=== PATIENT | male | born 1965 | race Two or more races ===

== ENCOUNTER 2019-08-08 22:02 | Inpatient (IN) | payer BC, OTHER ==
[~2019-08-08] VITALS: Ht 170.2 cm; Wt 95.3 kg
[~2019-08-08 22:02] MED LIST: ASPIR 8181 MG ORAL; COLACE100 MG ORAL; FLOMAX0.4 MG ORAL; METOPROLOL SUC200 MG ORAL; METOPROLOL TART25 MG ORAL; NORCO 5-325 TA1 EAC1 ORAL; PRILOSEC10 MG ORAL; SERTRALINE20 MG/1 M1 PO; SOMA350 MG PO
[2019-08-08 22:15] VITALS: BP 151/99
--- NOTE | 2019-08-08 22:15 | NUR ---
ED Nurse Note: Patient walked in from home accompanied by d/t abdominal pain 04/01. Patient stated pain started today and is progressively getting worse. Patient has hx of gallbladder removal. Patient aao x 4 and ambulatory. Patient placed in gown and registered nurse cardiac. No acute distress at this time.
--- NOTE | 2019-08-08 22:30 | NUR ---
ED Nurse Note: ERMD at bedside.
[2019-08-08] MEDS ORDERED: Omnipaque-300 100ml vial INJ PRN (23:00)
[2019-08-08 23:24] LABS: APPEARANCE,URINE CLEAR; BILIRUBIN, URINE NEGATIVE (NEGATIVE); GLUCOSE, URINE (UA) NEGATIVE (NEGATIVE); KETONES,URINE 1+ (NEGATIVE); LEUKOCYTE ESTERASE ,URINE NEGATIVE (NEGATIVE); NITRITE,URINE NEGATIVE (NEGATIVE); PH,URINE 6.5 (4.5-8.0); UROBILINOGEN,URINE 1 MG/DL (0.0-1.0)
[2019-08-08 23:27] LABS: COLOR,URINE YELLOW; PROTEIN,URINE NEGATIVE (NEGATIVE)
[2019-08-08 23:28] LABS: BASOPHILS % (AUTO) 0.9 % (0.0-2.0); EOSINOPHILS % (AUTO) 1.9 % (0.0-3.0); HEMATOCRIT 42.7 % (42.0-52.0); HEMOGLOBIN 15.1 G/DL (14.2-18.0); LYMPHOCYTES % (AUTO) 30.5 % (20.0-45.0); MEAN CORPUSCULAR VOLUME 86 FL (80-99); MONOCYTES % (AUTO) 10.4 % (1.0-10.0); NEUTROPHILS % (AUTO) 56.3 % (45.0-75.0); PLATELET COUNT 215 K/UL (150-450); RED BLOOD COUNT 4.96 M/UL (4.70-6.10); RED CELL DISTRIBUTION WIDTH 11.3 % (11.6-14.8); WHITE BLOOD COUNT 7.7 K/UL (4.8-10.8)
[2019-08-08 23:39] LABS: INR 1.1 (0.9-1.1)
[2019-08-08 23:41] LABS: ANION GAP 6 mmol/L (5-15); BLOOD UREA NITROGEN 17 mg/dL (7-18); CARBON DIOXIDE 29 MMOL/L (21-32); CHLORIDE 106 MMOL/L (98-107); CREATININE 1.2 MG/DL (0.55-1.30); POTASSIUM 3.8 MMOL/L (3.5-5.1); SODIUM 141 MMOL/L (136-145)
[2019-08-08 23:46] LABS: ALANINE AMINOTRANSFERASE 52 U/L (12-78); ALBUMIN/GLOBULIN RATIO 1.1 (1.0-2.7); ALKALINE PHOSPHATASE 51 U/L (46-116); ASPARTATE AMINO TRANSFERASE 27 U/L (15-37); BILIRUBIN,TOTAL 0.9 MG/DL (0.2-1.0)
--- NOTE | 2019-08-08 23:52 | NUR ---
ED Nurse Note: ERMD at bedside.
--- NOTE | 2019-08-09 00:22 | NUR ---
ED Nurse Note: Patient taken to CT in stable condition.
--- NOTE | 2019-08-09 01:17 | Diagnostic Imaging Report ---
Indication: Abdominal pain Technique: CT of the abdomen and pelvis utilizing automated exposure control with intravenous contrast. Venous scanning performed. Axial, sagittal and coronal reformats presented. CT dose: Total DLP 1699.8 mGycm; CTDI vol 27.1 mGy Comparison: No prior CT of the abdomen available for comparison Findings: Dependent atelectasis noted at the lung bases. Partially imaged heart appears normal in size. There is elevation of the bilateral hemidiaphragms. There is interposition of portions of the colon anterior to the liver (Chilaiditi sign). The patient is status post cholecystectomy. Hepatic contour appears smooth. No focal hepatic mass lesion noted on this single phase exam. Decreased hepatic attenuation may suggest but are not diagnostic of hepatic steatosis. Portal veins appear patent. No biliary ductal dilatation. Spleen appears mildly enlarged. Adrenal glands and pancreas unremarkable. Kidneys enhance symmetrically. There is no urinary tract stone or hydronephrosis bilaterally. There is a subcentimeter well-circumscribed low-attenuation lesion in the lower pole the right kidney which is too small to fully characterize but most likely represents a cyst. Bladder is unremarkable in appearance. Prostate is mildly enlarged and heterogeneous and exerts mild mass effect on the posterior aspect of the bladder. There is no free intraperitoneal air or fluid. There is no evidence of small bowel obstruction. There is equivocal thickening of the wall of the gastric antrum which may be related to underdistention. A mild gastritis can be considered in the appropriate clinical setting. The appendix is not definitively identified however there are no pericecal inflammatory changes to suggest acute appendicitis. Apparent focal thickening versus underdistention in the wall of the rectum (series 2 image #73). Abdominal aorta is normal in caliber. No acute osseous abnormality identified. IMPRESSION: * Equivocal thickening of the wall of the gastric antrum versus underdistention. Correlate clinically for symptoms of gastritis. * No evidence of bowel obstruction. Appendix not definitively identified however there is no focal pericecal inflammatory changes to suggest an acute appendicitis. * Apparent focal wall thickening involving portions of the rectum which may be related to underdistention. Consider follow-up colonoscopy, especially if none performed recently. * Status post cholecystectomy. * Chilaiditi sign. * Prostatomegaly with prostatic heterogeneity. Findings likely on the basis of BPH. Correlation with prostate exam and PSA however is recommended. Additional findings as above. The CT scanner at [facility] is accredited by the [employer] and the scans are performed using protocols designed to limit radiation exposure to as low as reasonably achievable to attain images of sufficient resolution adequate for diagnostic evaluation.
--- NOTE | 2019-08-09 01:50 | Emergency Room Report ---
History of Present Illness General Chief Complaint: Abdominal Pain Source: Patient Present Illness HPI 54-year-old male history of gallbladder removal, history of retained stone presents with epigastric pain, right upper quadrant pain that radiates to his right shoulder, no aggravating relieving factors symptoms started this morning, severity is moderate, constant no aggravating relieving factors, patient denies any association with food, no dyspnea on exertion, patient states that his epigastric discomfort no dyspnea on exertion patient presents for evaluation Allergies: Coded Allergies: No Known Allergies (Unverified , 09/16/15) Patient History Past Medical History: see triage record Reviewed Nursing Documentation: PMH: Agreed; PSxH: Agreed Nursing Documentation-PMH Hx Cardiac Problems: Yes - HTN;HYPERCHOLESTEROLEMIA Hx Hypertension: Yes Hx Diabetes: No Hx Cancer: No Hx Gastrointestinal Problems: No Review of Systems All Other Systems: negative except mentioned in HPI Physical Exam Vital Signs Date Time Temp Pulse Resp B/P (MAP) Pulse Ox O2 Delivery O2 Flow Rate FiO2 08/08/19 22:15 97.3 65 10 151/99 98 Room Air Sp02 EP Interpretation: reviewed, normal General Appearance: well appearing, no apparent distress, alert Head: normocephalic, atraumatic Eyes: bilateral eye PERRL, bilateral eye EOMI ENT: uvula midline, moist mucus membranes Neck: supple, thyroid normal, supple/symm/no masses Respiratory: lungs clear, no respiratory distress, no retraction, no accessory muscle use Cardiovascular #1: normal peripheral pulses, regular rate, rhythm, no edema, no gallop, no murmur Gastrointestinal: non tender, soft, no guarding, no rebound Musculoskeletal: normal inspection Neurologic: alert, oriented x3 Psychiatric: mood/affect normal Skin: no rash, warm/dry Medical Decision Making Diagnostic Impression: Primary Impression: Abdominal pain Qualified Codes: R10.13 - Epigastric pain Additional Impressions: Epigastric pain Chest pain Qualified Codes: R07.9 - Chest pain, unspecified ER Course 54-year-old male presents with epigastric pain, right upper quadrant pain, DDX includes ACS, retained gallstone, gastritis patient with Multiple flipped T waves, on EKG no old to compare, patient with a negative troponin CT scan negative, labs unremarkable Will admit patient for evaluation for ACS and possible retained stone Ultrasound will be conducted in the morning which will be followed up by hospitalist Troponins negative however they are currently up trending, but still negative We will admit patient for continued evaluation Patient admitted to Dr. Barragan Laboratory Tests Test 08/08/19 22:33 08/08/19 23:05 Urine Color Yellow Urine Appearance Clear Urine pH 6.5 (4.5-8.0) Urine Specific [place] 1.015 (1.005-1.035) Urine Protein Negative (NEGATIVE) Urine Glucose (UA) Negative (NEGATIVE) Urine Ketones 1+ (NEGATIVE) H Urine Blood Negative (NEGATIVE) Urine Nitrite Negative (NEGATIVE) Urine Bilirubin Negative (NEGATIVE) Urine Urobilinogen 1 MG/DL (0.0-1.0) H Urine Leukocyte Esterase Negative (NEGATIVE) White Blood Count 7.7 K/UL (4.8-10.8) Red Blood Count 4.96 M/UL (4.70-6.10) Hemoglobin 15.1 G/DL (14.2-18.0) Hematocrit 42.7 % (42.0-52.0) Mean Corpuscular Volume 86 FL (80-99) Mean Corpuscular Hemoglobin 30.5 PG (27.0-31.0) Mean Corpuscular Hemoglobin Concent 35.5 G/DL (32.0-36.0) Red Cell Distribution Width 11.3 % (11.6-14.8) L Platelet Count 215 K/UL (150-450) Mean Platelet Volume 6.8 FL (6.5-10.1) Neutrophils (%) (Auto) 56.3 % (45.0-75.0) Lymphocytes (%) (Auto) 30.5 % (20.0-45.0) Monocytes (%) (Auto) 10.4 % (1.0-10.0) H Eosinophils (%) (Auto) 1.9 % (0.0-3.0) Basophils (%) (Auto) 0.9 % (0.0-2.0) Prothrombin Time 11.4 SEC (9.30-11.50) Prothrombin Time INR 1.1 (0.9-1.1) PTT 32 SEC (23-33) Sodium Level 141 MMOL/L (136-145) Potassium Level 3.8 MMOL/L (3.5-5.1) Chloride Level 106 MMOL/L (98-107) Carbon Dioxide Level 29 MMOL/L (21-32) Anion Gap 6 mmol/L (5-15) Blood Urea Nitrogen 17 mg/dL (7-18) Creatinine 1.2 MG/DL (0.55-1.30) Estimate Glomerular Filtration Rate > 60 mL/min (>60) Glucose Level 98 MG/DL (74-106) Calcium Level 9.0 MG/DL (8.5-10.1) Total Bilirubin 0.9 MG/DL (0.2-1.0) Aspartate Amino Transferase (AST) 27 U/L (15-37) Alanine Aminotransferase (ALT) 52 U/L (12-78) Alkaline Phosphatase 51 U/L (46-116) Troponin I 0.043 ng/mL (0.000-0.056) Total Protein 7.7 G/DL (6.4-8.2) Albumin 4.0 G/DL (3.4-5.0) Globulin 3.7 g/dL Albumin/Globulin Ratio 1.1 (1.0-2.7) Lipase 101 U/L (73-393) EKG Diagnostic Results EKG Time: 22:59 EP Interpretation: NSR, rate 61, QTc 465, flipped T waves 1 aVL, 2 aVF, V3 through V6 Rhythm Strip Diag. Results Rhythm Strip Time: 01:50 EP Interpretation: yes Rate: 61 Rhythm: NSR, no PVC's, no ectopy Chest X-Ray Diagnostic Results Chest X-Ray Diagnostic Results : Chest X-Ray Ordered: Yes # of Views/Limited/Complete: 1 View Indication: Chest Pain EP Interpretation: Yes Interpretation: no consolidation, no effusion, no pneumothorax, no acute cardiopulmonary disease Impression: No acute disease Electronically Signed by: Jayme Jones MD CT/MRI/US Diagnostic Results CT/MRI/US Diagnostic Results : Impression Procedure: CT Abdomen Pelvis w/Contrast CT ABDOMEN + PELVIS With Contrast: Lower lungs: No acute findings. Liver: Steatosis. Gallbladder: Removed. Spleen, pancreas, and adrenal glands: No acute findings. Kidneys: No hydronephrosis or obstructive nephrolithiasis. Bowel: No bowel obstruction. Copious stool in the right and transverse colon. Appendix: No convincing appendicitis. Bladder: Unremarkable. Pelvic organs: Mildly enlarged prostate. Vessels: No aortic aneurysm. Bones: No acute fracture. Dictated By: FARHAN PORTILLO M.D. Electronically Signed By: Signed Date/Time CC: Last Vital Signs Date Time Temp Pulse Resp B/P (MAP) Pulse Ox O2 Delivery O2 Flow Rate FiO2 08/08/19 22:25 98.1 64 18 147/88 (107) 95 Room Air Disposition: ADMITTED INPATIENT Condition: Stable Referrals: NON PHYSICIAN (PCP) Jayme Jones MD Aug 09, 2019 01:50
[2019-08-09] MEDS ORDERED: LOSARTAN-HCTZ1 EACH ORAL (02:37)
--- NOTE | 2019-08-09 02:38 | NUR ---
ED Nurse Note: Report given to DOUG Kenney at telemetry.
[2019-08-09] MEDS ORDERED: Enoxaparin 100mg Inj SUBQ ONE (02:45)
--- NOTE | 2019-08-09 02:45 | NUR ---
ED Nurse Note: Patient transported via gurney on monitoring and evaluation advisor with 1 RN and cardio tech in stable condition.
[2019-08-09 03:00] VITALS: BP 145/93
--- NOTE | 2019-08-09 03:41 | NUR ---
NURSE NOTES: Received pt from ED via gurney. Pt transferred to [facility] without any incident. at bedside. Received report from charge nurse, Maria Teresa. Pt is A/Ox4. [place] pt to room and unit. [employer] is in placed; pt is NSR. IV site intact, asymptomatic and patent. Belongings list checked and signed by pt. Bed is in the lowest position and locked. Call light and bedside stable is within reach. No signs/symptoms of acute distress noted at this time. Will contact Dr. Barragan for admission orders.
[2019-08-09 04:00] VITALS: BP 142/94
--- NOTE | 2019-08-09 04:11 | NUR ---
NURSE NOTES: Received admission orders from Dr. Barragan. Will note and carry out.
--- NOTE | 2019-08-09 07:24 | NUR ---
NURSE NOTES: handoff received from austin Patel. patient received sleeping in bed, iv site clean dry and intact running prescribed fluids, no acute signs of distress noted. bed in the low and locked position with call light at bedside. will continue to monitor.
--- NOTE | 2019-08-09 07:33 | NUR ---
HAND-OFF: Report given to DOUG Gauthier. Plan of care endorsed.
[2019-08-09 08:00] VITALS: BP 147/105
--- NOTE | 2019-08-09 08:56 | Consultation ---
History of Present Illness General Date patient seen: Aug 09, 2019 Time patient seen: 08:30 - am Chief Complaint: Abdominal pain Referring physician: Yung Reason for Consultation: Pain Management Present Illness HPI This is a 54-year-old male history of gallbladder removal, history of retained stone admitted due to epigastric pain, right upper quadrant pain that radiated to his right shoulder, no aggravating relieving factors symptoms started yesterday, severity was moderate, no aggravating relieving factors, patient denies any association with food, no dyspnea on exertion, patient states that his epigastric discomfort no dyspnea on exertion patient presents for evaluation. He is denying pain at this time. We were consulted so patient has adequate pain control while here in the [facility] Past medical History HTN;HYPERCHOLESTEROLEMIA, sleep apnea, fatty liver Past surgical History Cholecystectomy Social History Denies: smoking, alcohol use, drug use, other Allergies: Coded Allergies: No Known Allergies (Unverified , 09/16/15) Medication History Scheduled Losartan/Hydrochlorothiazide (Losartan-Hctz 100-12.5 Mg Tab), 1 TAB ORAL BID, ( Reported) Tamsulosin HCl (Flomax), 0.4 MG ORAL QHS, (Reported) Discontinued Medications Aspirin* (Aspir 81*), 81 MG ORAL DAILY, (Reported) Discontinued Reason: MD discontinued med Carisoprodol* (Soma*), 350 MG PO TID, (Reported) Discontinued Reason: MD discontinued med Docusate Sodium* (Colace*), 100 MG ORAL THREE TIMES A DAY, (Reported) Discontinued Reason: MD discontinued med Hydrocodone Bit/Acetaminophen 5-325* ([place] 5-325 Tablet*), 1 TAB ORAL Q6HR PRN for For Pain, (Reported) Discontinued Reason: MD discontinued med Metoprolol Succinate (Metoprolol Succinate), Unknown Dose ORAL DAILY, (Reported) Discontinued Reason: MD discontinued med Metoprolol Tartrate* (Metoprolol Tartrate*), 25 MG ORAL BID, (Reported) Discontinued Reason: MD discontinued med Omeprazole (Prilosec), 10 MG ORAL DAILY, (Reported) Discontinued Reason: MD discontinued med Sertraline Hcl (Sertraline Hcl), 20 MG PO, (Reported) Discontinued Reason: MD discontinued med Patient History Healthcare decision maker Resuscitation status Full Code Advanced Directive on File Review of Systems ROS Narrative All Other Systems: negative except mentioned in HPI Physical Exam Physical Exam Narrative General Appearance: well appearing, no apparent distress, alert Head: normocephalic EENT: PERRL/EOMI, normal ENT inspection Neck: supple Respiratory: normal breath sounds, no respiratory distress Cardiovascular: normal rate Gastrointestinal: normal inspection, non tender, soft, normal bowel sounds, non -distended Rectal: deferred Genitourinary: deferred Musculoskeletal: normal inspection, back normal Neurologic: alert, oriented x3, responsive, normal inspection Psychiatric: normal inspection, judgement/insight normal, memory normal Skin: normal inspection, normal color, no rash, warm/dry, palpation normal, well hydrated Lymphatic: normal inspection, no adenopathy Last 24 Hour Vital Signs Date Time Temp Pulse Resp B/P (MAP) Pulse Ox O2 Delivery O2 Flow Rate FiO2 08/09/19 04:00 97.6 62 18 142/94 (110) 96 08/09/19 03:36 Room Air 08/09/19 03:24 69 08/09/19 03:00 97.4 66 17 145/93 (110) 96 08/09/19 02:45 97.5 70 19 139/65 97 Room Air 08/08/19 22:25 98.1 64 18 147/88 (107) 95 Room Air 08/08/19 22:15 65 10 Room Air 08/08/19 22:15 97.3 65 10 151/99 98 Room Air Intake and Output 08/08/19 08/09/19 18:59 06:59 Intake Total 1000 ml Balance 1000 ml Intake Oral 0 ml IV Total 1000 ml # Voids 3 Laboratory Tests Test 08/08/19 22:33 08/08/19 23:05 08/09/19 01:50 Urine Color Yellow Urine Appearance Clear Urine pH 6.5 (4.5-8.0) Urine Specific [place] 1.015 (1.005-1.035) Urine Protein Negative (NEGATIVE) Urine Glucose (UA) Negative (NEGATIVE) Urine Ketones 1+ (NEGATIVE) H Urine Blood Negative (NEGATIVE) Urine Nitrite Negative (NEGATIVE) Urine Bilirubin Negative (NEGATIVE) Urine Urobilinogen 1 MG/DL (0.0-1.0) H Urine Leukocyte Esterase Negative (NEGATIVE) White Blood Count 7.7 K/UL (4.8-10.8) Red Blood Count 4.96 M/UL (4.70-6.10) Hemoglobin 15.1 G/DL (14.2-18.0) Hematocrit 42.7 % (42.0-52.0) Mean Corpuscular Volume 86 FL (80-99) Mean Corpuscular Hemoglobin 30.5 PG (27.0-31.0) Mean Corpuscular Hemoglobin Concent 35.5 G/DL (32.0-36.0) Red Cell Distribution Width 11.3 % (11.6-14.8) L Platelet Count 215 K/UL (150-450) Mean Platelet Volume 6.8 FL (6.5-10.1) Neutrophils (%) (Auto) 56.3 % (45.0-75.0) Lymphocytes (%) (Auto) 30.5 % (20.0-45.0) Monocytes (%) (Auto) 10.4 % (1.0-10.0) H Eosinophils (%) (Auto) 1.9 % (0.0-3.0) Basophils (%) (Auto) 0.9 % (0.0-2.0) Prothrombin Time 11.4 SEC (9.30-11.50) Prothromb Time International Ratio 1.1 (0.9-1.1) Activated Partial Thromboplast Time 32 SEC (23-33) Sodium Level 141 MMOL/L (136-145) Potassium Level 3.8 MMOL/L (3.5-5.1) Chloride Level 106 MMOL/L (98-107) Carbon Dioxide Level 29 MMOL/L (21-32) Anion Gap 6 mmol/L (5-15) Blood Urea Nitrogen 17 mg/dL (7-18) Creatinine 1.2 MG/DL (0.55-1.30) Estimat Glomerular Filtration Rate > 60 mL/min (>60) Glucose Level 98 MG/DL (74-106) Calcium Level 9.0 MG/DL (8.5-10.1) Total Bilirubin 0.9 MG/DL (0.2-1.0) Aspartate Amino Transf (AST/SGOT) 27 U/L (15-37) Alanine Aminotransferase (ALT/SGPT) 52 U/L (12-78) Alkaline Phosphatase 51 U/L (46-116) Troponin I 0.043 ng/mL (0.000-0.056) 0.054 ng/mL (0.000-0.056) Total Protein 7.7 G/DL (6.4-8.2) Albumin 4.0 G/DL (3.4-5.0) Globulin 3.7 g/dL Albumin/Globulin Ratio 1.1 (1.0-2.7) Lipase 101 U/L (73-393) Height (Feet): 5 Height (Inches): 7.00 Weight (Pounds): 210 Medications Current Medications Medications (Trade) Dose Ordered Sig/Monalisa Route PRN Reason Start Time Stop Time Status Last Admin Dose Admin Acetaminophen (Tylenol) 650 mg Q4H PRN ORAL Mild Pain/Temp > 100.5 08/09/19 04:15 09/08/19 04:14 Iohexol (OMNIPAQUE-300 100ml) 100 ml NOW PRN INJ Radiology Procedure 08/08/19 23:00 08/10/19 22:56 Sodium Chloride 1,000 ml @ 55 mls/hr [id number] IV 08/09/19 04:15 09/08/19 04:14 08/09/19 05:06 Assessment/Plan Assessment/Plan: (1) Post-cholecystectomy syndrome (2) Abdominal pain Patient will be started on Tylenol 650mg PO 1 tab Q4h PRN pain D/w Dr. Grigsby and he concurred. Thank you for the courtesy of this consult. Vladimir Lovelace Aug 09, 2019 08:56
--- NOTE | 2019-08-09 09:10 | NUR ---
NURSE NOTES: patient stated that he takes Cozaar at home, noticed he does not have any blood pressure medications at this time. contacted the Dr and he gave orders for cozaar.
[2019-08-09] MEDS: Losartan 25mg tab ORAL SCH (11:20)
[2019-08-09 11:51] VITALS: BP 120/62
--- NOTE | 2019-08-09 13:08 | GI Initial Consult Note ---
History of Present Illness General Date patient seen: Aug 09, 2019 Time patient seen: 13:01 Reason for Hospitalization: Abdominal Pain Referring physician: NAZIA PHILLIPS Reason for Consultation: RUQ PAIN Present Illness HPI 54-year-old male history of gallbladder removal, history of retained stone presents with epigastric pain, right upper quadrant pain that radiates to his right shoulder, no aggravating relieving factors symptoms started this morning, severity is moderate, constant no aggravating relieving factors, patient denies any association with food, no dyspnea on exertion, patient states that his epigastric discomfort no dyspnea on exertion patient presents for evaluation GI consulted for right upper quadrant pain. Patient seen, awake fatigue, no apparent distress no active signs or symptoms of any nausea vomiting. Patient is sleepy unable to provide any significant history at this time. Patient has history of laparoscopic cholecystectomy done back in August 2015. Abdominal pelvic CT performed in the emergency room mainly unremarkable. Did note copious stool in the right and transverse colon. Labs reviewed noted unremarkable CBC and CMP. No transaminitis noted, lipase levels within normal limits Home Meds Reported Medications Losartan/Hydrochlorothiazide (LOSARTAN-HCTZ 100-12.5 MG TAB) 1 Each Tablet, 1 TAB ORAL BID, TAB 08/09/19 Tamsulosin HCl (Flomax) 0.4 Mg Cap, 0.4 MG ORAL QHS, CAP 09/21/15 Discontinued Reported Medications Metoprolol Tartrate* (METOPROLOL TARTRATE*) 25 Mg Tablet, 25 MG ORAL BID, TAB 09/21/15 Docusate Sodium* (COLACE*) 100 Mg Capsule, 100 MG ORAL THREE TIMES A DAY for Constipation, CAP 09/21/15 Carisoprodol* (SOMA*) 350 Mg Tablet, 350 MG PO TID for For Pain, TAB 09/21/15 Hydrocodone Bit/Acetaminophen 5-325* (NORCO 5-325 TABLET*) 1 Each Tablet, 1 TAB ORAL Q6HR PRN for For Pain, TAB 09/16/15 Aspirin* (ASPIR 81*) 81 Mg Tablet.dr, 81 MG ORAL DAILY, TAB 09/16/15 Omeprazole (PRILOSEC) 10 Mg Capsule.dr, 10 MG ORAL DAILY, CAP 09/16/15 Metoprolol Succinate (METOPROLOL SUCCINATE) 200 Mg Tab.er.24h, ORAL DAILY, TAB 09/16/15 Sertraline Hcl (SERTRALINE HCL) 20 Mg/1 Ml Oral.conc, 20 MG PO, ML 09/16/15 Allergies: Coded Allergies: No Known Allergies (Unverified , 09/16/15) Patient History History Provided By: Patient, Medical Record PMH Narrative Past Medical History: see triage record Reviewed Nursing Documentation: PMH: Agreed; PSxH: Agreed Nursing Documentation-PMH Hx Cardiac Problems: Yes - HTN;HYPERCHOLESTEROLEMIA Hx Hypertension: Yes Hx Diabetes: No Hx Cancer: No Hx Gastrointestinal Problems: No Social History: Denies: smoking, alcohol use, drug use, other Review of Systems All Other Systems: negative except mentioned in HPI Physical Exam Vital Signs Date Time Temp Pulse Resp B/P (MAP) Pulse Ox O2 Delivery O2 Flow Rate FiO2 08/08/19 22:15 97.3 65 10 151/99 98 Room Air Sp02 EP Interpretation: reviewed, normal Labs Laboratory Tests Test 08/08/19 22:33 08/08/19 23:05 08/09/19 01:50 08/09/19 11:45 Urine Color Yellow Urine Appearance Clear Urine pH 6.5 (4.5-8.0) Urine Specific [place] 1.015 (1.005-1.035) Urine Protein Negative (NEGATIVE) Urine Glucose (UA) Negative (NEGATIVE) Urine Ketones 1+ (NEGATIVE) H Urine Blood Negative (NEGATIVE) Urine Nitrite Negative (NEGATIVE) Urine Bilirubin Negative (NEGATIVE) Urine Urobilinogen 1 MG/DL (0.0-1.0) H Urine Leukocyte Esterase Negative (NEGATIVE) White Blood Count 7.7 K/UL (4.8-10.8) Red Blood Count 4.96 M/UL (4.70-6.10) Hemoglobin 15.1 G/DL (14.2-18.0) Hematocrit 42.7 % (42.0-52.0) Mean Corpuscular Volume 86 FL (80-99) Mean Corpuscular Hemoglobin 30.5 PG (27.0-31.0) Mean Corpuscular Hemoglobin Concent 35.5 G/DL (32.0-36.0) Red Cell Distribution Width 11.3 % (11.6-14.8) L Platelet Count 215 K/UL (150-450) Mean Platelet Volume 6.8 FL (6.5-10.1) Neutrophils (%) (Auto) 56.3 % (45.0-75.0) Lymphocytes (%) (Auto) 30.5 % (20.0-45.0) Monocytes (%) (Auto) 10.4 % (1.0-10.0) H Eosinophils (%) (Auto) 1.9 % (0.0-3.0) Basophils (%) (Auto) 0.9 % (0.0-2.0) Prothrombin Time 11.4 SEC (9.30-11.50) Prothromb Time International Ratio 1.1 (0.9-1.1) Activated Partial Thromboplast Time 32 SEC (23-33) Sodium Level 141 MMOL/L (136-145) Potassium Level 3.8 MMOL/L (3.5-5.1) Chloride Level 106 MMOL/L (98-107) Carbon Dioxide Level 29 MMOL/L (21-32) Anion Gap 6 mmol/L (5-15) Blood Urea Nitrogen 17 mg/dL (7-18) Creatinine 1.2 MG/DL (0.55-1.30) Estimat Glomerular Filtration Rate > 60 mL/min (>60) Glucose Level 98 MG/DL (74-106) Calcium Level 9.0 MG/DL (8.5-10.1) Total Bilirubin 0.9 MG/DL (0.2-1.0) Aspartate Amino Transf (AST/SGOT) 27 U/L (15-37) Alanine Aminotransferase (ALT/SGPT) 52 U/L (12-78) Alkaline Phosphatase 51 U/L (46-116) Troponin I 0.043 ng/mL (0.000-0.056) 0.054 ng/mL (0.000-0.056) 0.050 ng/mL (0.000-0.056) Total Protein 7.7 G/DL (6.4-8.2) Albumin 4.0 G/DL (3.4-5.0) Globulin 3.7 g/dL Albumin/Globulin Ratio 1.1 (1.0-2.7) Lipase 101 U/L (73-393) General Appearance: well appearing, no apparent distress, alert Head: normocephalic EENT: PERRL/EOMI, normal ENT inspection Neck: supple Respiratory: normal breath sounds, no respiratory distress Cardiovascular: normal rate Gastrointestinal: normal inspection, non tender, soft, normal bowel sounds, non -distended Rectal: deferred Genitourinary: deferred Musculoskeletal: normal inspection, back normal Neurologic: alert, oriented x3, responsive, normal inspection Psychiatric: normal inspection, judgement/insight normal, memory normal Skin: normal inspection, normal color, no rash, warm/dry, palpation normal, well hydrated Lymphatic: normal inspection, no adenopathy Current Medications Current Medications Medications (Trade) Dose Ordered Sig/Monalisa Route PRN Reason Start Time Stop Time Status Last Admin Dose Admin Acetaminophen (Tylenol) 650 mg Q4H PRN ORAL Mild Pain/Temp > 100.5 08/09/19 04:15 09/08/19 04:14 Iohexol (OMNIPAQUE-300 100ml) 100 ml NOW PRN INJ Radiology Procedure 08/08/19 23:00 08/10/19 22:56 Losartan Potassium (Cozaar) 25 mg DAILY ORAL 08/09/19 10:00 09/08/19 09:59 08/09/19 11:20 Sodium Chloride 1,000 ml @ 55 mls/hr [id number] IV 08/09/19 04:15 09/08/19 04:14 08/09/19 05:06 GI: Plan Problems: (1) Post-cholecystectomy syndrome (2) Abdominal pain (3) Chest pain (4) Epigastric pain (5) Gallstones (6) Pancreatitis (7) Cholecystitis Plan Negative abdominal pelvic CT No plans for any GI procedures at this time. Symptomatic treatment Advance diet as tolerated Pain management Zofran as needed PPI Follow-up cardiology recommendations We will follow on daily basis with any additional recommendations The patient was seen and examined at bedside and all new and available data was reviewed in the patients chart. I agree with the above findings, impression and plan. (Patient seen earlier today. Signature stamp does not reflect patient encounter time.). - MD Susana Bourgeois,Melissa-Cj WALTER Aug 09, 2019 13:08
[2019-08-09 16:00] VITALS: BP_SYST 129; BP_SYST 148; BP_DIAS 85; BP_DIAS 87
--- NOTE | 2019-08-09 17:34 | Diagnostic Imaging Report ---
Indication: Chest pain Technique: XRAY Chest 1v Comparison: 11/04/2016 Findings: Exam with low lung volumes. There is streaky likely expiratory atelectasis at the bases. Heart size and mediastinal contours within normal limits for AP technique and low lung volumes. No pleural effusion or pneumothorax. No acute osseous abnormality. Impression: Low volumes with streaky atelectasis at the bases.
--- NOTE | 2019-08-09 17:39 | Diagnostic Imaging Report ---
Indication: Abdominal pain Technique: US ABD Complete Comparison: 09/16/2015 Findings: Technically difficult scan given body habitus and overlying bowel gas. Within these limitations: Imaged portions of the pancreas grossly unremarkable. Liver demonstrates increased echogenicity suggesting hepatic steatosis. Liver appears normal in size. Hepatic contour appears smooth. No focal hepatic mass lesion appreciated sonographically. Imaged hepatic veins are patent. Main portal vein is patent with normal direction of flow. Gallbladder is not identified. No biliary ductal dilatation is demonstrated. The common bile duct measures 3.2 mm in diameter. The kidneys demonstrate normal echogenicity. There is no hydronephrosis or sonographically appreciable renal stone. A approximately 1 cm simple cyst is noted in the lower pole the right kidney. Spleen is mildly enlarged measuring 13-14 cm in length. Imaged portions of the abdominal aorta are normal in caliber. No ascites is demonstrated. Impression: * Status post cholecystectomy. * Hepatic steatosis. * Splenomegaly. * Approximately 1 cm simple appearing right renal cyst.
--- NOTE | 2019-08-09 19:30 | NUR ---
NURSE NOTES: Received report from DOUG Gauthier. Pt is awake, lying high-watts's position; resting comfortably. at the bedside. No signs of acute distress noted. Denies any pain at this time. AOx4; able to make needs known. Checked IV site; patent and flushed. No erythema, bleeding, or infiltration noted. Bed at lowest position. Brakes on. Siderails up x2. Call light within reach. Will continue to monitor.
--- NOTE | 2019-08-09 19:48 | NUR ---
HAND-OFF: Report given to austin Gomez.
[2019-08-09 20:00] VITALS: BP 113/57
--- NOTE | 2019-08-09 21:07 | NUR ---
NURSE NOTES: Called Dr. Barragan to inform him that patient refuses 1/2 NS @ 55 mls/hr continuous fluids. Awaiting callback.
--- NOTE | 2019-08-09 22:00 | NUR ---
NURSE NOTES: Received order from Dr. Barragan to discontinue 1/2 NS @ 55 ml/hr order. Noted and carried out.
--- NOTE | 2019-08-09 23:45 | History and Physical Report ---
DATE OF ADMISSION: 08/09/2019 HISTORY OF PRESENT ILLNESS: The patient complains of one day of right upper quadrant tenderness. The patient has history of cholecystectomy and then has gallbladder removed, comes with retained stone and now presented with right upper quadrant pain and epigastric pain, admitted for pain control, rule out ACS. The patient does complain of chest pain as well. The patient denies nausea, vomiting, or diarrhea. Denies fever or chills. Denies shortness of breath. Denies cough. Denies chills. PAST MEDICAL HISTORY: Significant for hypertension, BPH, gallstones, and lipoma. PAST SURGICAL HISTORY: Removal of lipoma and cholecystectomy. ALLERGIES: No known allergies. MEDICATIONS: Hydrochlorothiazide, losartan, and Flomax. FAMILY HISTORY: Noncontributory. SOCIAL HISTORY: Denies smoking, alcohol, or illicit drugs. . REVIEW OF SYSTEMS: HEENT: Denies headaches. RESPIRATORY: Denies shortness of breath. Denies cough. CARDIOVASCULAR: Does have chest pain for one day. GASTROINTESTINAL: Reports right upper quadrant for one day. Denies extension to the sides. Denies nausea, vomiting, or diarrhea. CENTRAL NERVOUS SYSTEM: Denies change in vision or speech pattern. PHYSICAL EXAMINATION: VITAL SIGNS: Temperature is 98.5, pulse is 60, blood pressure 128/60. HEENT: PERRLA. NECK: Supple. No lymphadenopathy. CHEST: Clear to auscultation. CARDIOVASCULAR: Regular rate and rhythm. No murmurs or extra sounds. GASTROINTESTINAL: Mild right upper quadrant tenderness. No rebound. No organomegaly. Positive bowel sounds. EXTREMITIES: No edema. Moves all four extremities. NEUROLOGIC: Sensory is intact to light touch. Reflexes on both sides. LABORATORY DATA: WBC of 7.7, hemoglobin 14.1, and platelets of 215. Sodium 141, potassium 3.8, glucose of 98, BUN of 17, creatinine 1.2. ASSESSMENT AND PLAN: 1. Abdominal pain. 2. Chest pain. 3. Rule out a stone in the common bile duct. I have asked Dr. Foster, Dr. Simon, Dr. Grigsby, and Dr. Librado Mcbride to see the patient for pain management as well as for possible surgical clearance as well as to see if there is any retained stone in the common bile duct and antibiotics if any per Dr. Librado Mcbride. Peter Barragan M.D. DR: NITESH JOB#: [id number] CC:
[2019-08-10] VITALS: BP 114/64
--- NOTE | 2019-08-10 01:37 | Cardiology Progress Note ---
Assessment/Plan Assessment/Plan The patient is seen and examined, full consult note will be dictated. Objective Last 24 Hour Vital Signs Date Time Temp Pulse Resp B/P (MAP) Pulse Ox O2 Delivery O2 Flow Rate FiO2 08/10/19 00:00 59 08/09/19 21:00 Room Air 08/09/19 20:00 71 08/09/19 20:00 97.3 65 18 113/57 (75) 98 08/09/19 16:00 97.9 60 16 129/85 (100) 96 08/09/19 16:00 58 08/09/19 16:00 98.2 80 16 148/87 (107) 100 08/09/19 12:00 56 08/09/19 11:51 98.5 60 16 120/62 (81) 96 08/09/19 11:20 142/94 08/09/19 09:00 Room Air 08/09/19 08:00 96.8 96 18 147/105 (119) 94 08/09/19 08:00 54 08/09/19 04:00 97.6 62 18 142/94 (110) 96 08/09/19 03:36 Room Air 08/09/19 03:24 69 08/09/19 03:00 97.4 66 17 145/93 (110) 96 08/09/19 02:45 97.5 70 19 139/65 97 Room Air Laboratory Tests Test 08/09/19 01:50 08/09/19 11:45 Troponin I 0.054 ng/mL (0.000-0.056) 0.050 ng/mL (0.000-0.056) Everette Simon MD Aug 10, 2019 01:37
[2019-08-10 04:00] VITALS: BP 127/86
--- NOTE | 2019-08-10 07:02 | General Progress Note ---
Assessment/Plan Problem List: (1) Gallstones ICD Codes: K80.20 - Calculus of gallbladder without cholecystitis without obstruction SNOMED: 742636159 (2) Chest pain ICD Codes: R07.9 - Chest pain, unspecified SNOMED: 95022324 Qualifiers: Qualified Codes: R07.9 - Chest pain, unspecified (3) Abdominal pain ICD Codes: R10.9 - Unspecified abdominal pain SNOMED: 30331456 Qualifiers: Qualified Codes: R10.13 - Epigastric pain (4) Epigastric pain ICD Codes: R10.13 - Epigastric pain SNOMED: 35538221 (5) Post-cholecystectomy syndrome ICD Codes: K91.5 - Postcholecystectomy syndrome SNOMED: 02632686 (6) S/P laparoscopic cholecystectomy ICD Codes: Z90.49 - Acquired absence of other specified parts of digestive tract SNOMED: 69259474, 22688471, 522599478 Assessment/Plan: abd us: Impression: * Status post cholecystectomy. * Hepatic steatosis. * Splenomegaly. * Approximately 1 cm simple appearing right renal cyst pending stress test today given CT finding will need EGD and colonoscopy if stress test is negative ppi Subjective ROS Limited/Unobtainable: Yes Allergies: Coded Allergies: No Known Allergies (Unverified , 09/16/15) Objective Last 24 Hour Vital Signs Date Time Temp Pulse Resp B/P (MAP) Pulse Ox O2 Delivery O2 Flow Rate FiO2 08/10/19 04:00 97.5 56 18 127/86 (100) 97 08/10/19 03:22 54 08/10/19 00:00 96.8 59 18 114/64 (81) 92 08/10/19 00:00 59 08/09/19 21:00 Room Air 08/09/19 20:00 71 08/09/19 20:00 97.3 65 18 113/57 (75) 98 08/09/19 16:00 97.9 60 16 129/85 (100) 96 08/09/19 16:00 58 08/09/19 16:00 98.2 80 16 148/87 (107) 100 08/09/19 12:00 56 08/09/19 11:51 98.5 60 16 120/62 (81) 96 08/09/19 11:20 142/94 08/09/19 09:00 Room Air 08/09/19 08:00 96.8 96 18 147/105 (119) 94 08/09/19 08:00 54 Intake and Output 08/09/19 08/10/19 19:00 07:00 Intake Total 55 ml 220 ml Balance 55 ml 220 ml IV Total 55 ml 220 ml Laboratory Tests 08/09/19 11:45: Troponin I 0.050 08/10/19 06:17: White Blood Count [Pending], Red Blood Count [Pending], Hemoglobin [Pending], Hematocrit [Pending], Mean Corpuscular Volume [Pending], Mean Corpuscular Hemoglobin [Pending], Mean Corpuscular Hemoglobin Concent [Pending], Red Cell Distribution Width [Pending], Platelet Count [Pending], Mean Platelet Volume [ Pending], Neutrophils (%) (Auto) [Pending], Lymphocytes (%) (Auto) [Pending], Monocytes (%) (Auto) [Pending], Eosinophils (%) (Auto) [Pending], Basophils (%) (Auto) [Pending], Sodium Level [Pending], Potassium Level [Pending], Chloride Level [Pending], Carbon Dioxide Level [Pending], Blood Urea Nitrogen [Pending], Creatinine [Pending], Estimat Glomerular Filtration Rate [Pending], Glucose Level [Pending], Calcium Level [Pending], Triglycerides Level [Pending], Cholesterol Level [Pending], LDL Cholesterol [Pending], HDL Cholesterol [Pending ], Cholesterol/HDL Ratio [Pending] Height (Feet): 5 Height (Inches): 7.00 Weight (Pounds): 210 General Appearance: alert EENT: normal ENT inspection Neck: normal alignment Cardiovascular: normal rate Respiratory/Chest: lungs clear Abdomen: normal bowel sounds, non tender, soft Extremities: non-tender Asif Foster MD Aug 10, 2019 07:02
--- NOTE | 2019-08-10 07:15 | NUR ---
HAND-OFF: Report given to DOUG Mckeon. Pt is awake and in stable condition. Plan of care endorsed.
[2019-08-10 07:28] LABS: BASOPHILS % (AUTO) 1.1 % (0.0-2.0); EOSINOPHILS % (AUTO) 2.2 % (0.0-3.0); HEMATOCRIT 46.6 % (42.0-52.0); HEMOGLOBIN 15.9 G/DL (14.2-18.0); LYMPHOCYTES % (AUTO) 24.2 % (20.0-45.0); MEAN CORPUSCULAR VOLUME 88 FL (80-99); MONOCYTES % (AUTO) 10.4 % (1.0-10.0); NEUTROPHILS % (AUTO) 62.2 % (45.0-75.0); PLATELET COUNT 214 K/UL (150-450); RED BLOOD COUNT 5.32 M/UL (4.70-6.10); RED CELL DISTRIBUTION WIDTH 11.7 % (11.6-14.8); WHITE BLOOD COUNT 7.4 K/UL (4.8-10.8)
--- NOTE | 2019-08-10 07:30 | NUR ---
NURSE NOTES: Received pt is sleeping, pt is in RA, No SOB or acute respiratory distress noted. pt has intact iv access SL. pt is NPO due to stress test. No complain of pain at this moment, all needs attended, bed is locked and is in the lowest position, call light within easy reach. will continue to monitor.
[2019-08-10 07:39] LABS: ANION GAP 8 mmol/L (5-15); BLOOD UREA NITROGEN 15 mg/dL (7-18); CALCIUM 9.1 MG/DL (8.5-10.1); CARBON DIOXIDE 28 MMOL/L (21-32); CHLORIDE 104 MMOL/L (98-107); CREATININE 1.2 MG/DL (0.55-1.30); POTASSIUM 4.1 MMOL/L (3.5-5.1); SODIUM 140 MMOL/L (136-145)
[2019-08-10 08:00] VITALS: BP 135/81
--- NOTE | 2019-08-10 09:04 | General Progress Note ---
Assessment/Plan Assessment/Plan: (1) Post-cholecystectomy syndrome (2) Abdominal pain Patient will be continued on Tylenol D/w Dr. Grigsby and he concurred. Subjective Date patient seen: Aug 10, 2019 Time patient seen: 08:15 - am Constitutional: Reports: no symptoms HEENT: Reports: no symptoms Respiratory: Reports: no symptoms Gastrointestinal/Abdominal: Reports: no symptoms Genitourinary: Reports: no symptoms Neurologic/Psychiatric: Reports: no symptoms Endocrine: Reports: no symptoms Hematologic/Lymphatic: Reports: no symptoms Allergies: Coded Allergies: No Known Allergies (Unverified , 09/16/15) Subjective Patient is showing no signs of pain or distress. Denies pain at this time. Objective Last 24 Hour Vital Signs Date Time Temp Pulse Resp B/P (MAP) Pulse Ox O2 Delivery O2 Flow Rate FiO2 08/10/19 08:29 Room Air 08/10/19 08:00 98.6 65 20 135/81 (99) 98 08/10/19 04:00 97.5 56 18 127/86 (100) 97 08/10/19 03:22 54 08/10/19 00:00 96.8 59 18 114/64 (81) 92 08/10/19 00:00 59 08/09/19 21:00 Room Air 08/09/19 20:00 71 08/09/19 20:00 97.3 65 18 113/57 (75) 98 08/09/19 16:00 97.9 60 16 129/85 (100) 96 08/09/19 16:00 58 08/09/19 16:00 98.2 80 16 148/87 (107) 100 08/09/19 12:00 56 08/09/19 11:51 98.5 60 16 120/62 (81) 96 08/09/19 11:20 142/94 Intake and Output 08/09/19 08/10/19 19:00 07:00 Intake Total 55 ml 460 ml Balance 55 ml 460 ml Intake Oral 240 ml IV Total 55 ml 220 ml # Voids 2 Laboratory Tests 08/09/19 11:45: Troponin I 0.050 08/10/19 06:17: White Blood Count 7.4, Red Blood Count 5.32, Hemoglobin 15.9, Hematocrit 46.6, Mean Corpuscular Volume 88, Mean Corpuscular Hemoglobin 29.9, Mean Corpuscular Hemoglobin Concent 34.0, Red Cell Distribution Width 11.7, Platelet Count 214, Mean Platelet Volume 6.4L, Neutrophils (%) (Auto) 62.2, Lymphocytes (%) (Auto) 24.2, Monocytes (%) (Auto) 10.4H, Eosinophils (%) (Auto) 2.2, Basophils (%) ( Auto) 1.1, Sodium Level 140, Potassium Level 4.1, Chloride Level 104, Carbon Dioxide Level 28, Anion Gap 8, Blood Urea Nitrogen 15, Creatinine 1.2, Estimat Glomerular Filtration Rate > 60, Glucose Level 106, Calcium Level 9.1, Triglycerides Level [Pending], Cholesterol Level [Pending], LDL Cholesterol [ Pending], HDL Cholesterol [Pending], Cholesterol/HDL Ratio [Pending] Height (Feet): 5 Height (Inches): 7.00 Weight (Pounds): 210 General Appearance: no apparent distress, alert EENT: PERRL/EOMI, normal ENT inspection Neck: non-tender, normal alignment Cardiovascular: normal rate, regular rhythm Respiratory/Chest: lungs clear, normal breath sounds Abdomen: non tender, soft Extremities: non-tender Edema: no edema noted Generalized Neurologic: alert, oriented x 3 Skin: normal pigmentation Vladimir Lovelace Aug 10, 2019 09:04
[2019-08-10] MEDS: Losartan 25mg tab ORAL SCH (09:32)
[2019-08-10 09:41] LABS: CHOLESTEROL 137 MG/DL (< 200); HDL CHOLESTEROL 29 MG/DL (40-60); TRIGLYCERIDES 138 MG/DL (30-150)
[2019-08-10] MEDS: Lexiscan 0.4mg/5ml syringe IV SCH ×2 (10:20→11:22)
--- NOTE | 2019-08-10 10:30 | NUR ---
NURSE NOTES: stress test done by Dr BILLINGS and pt tolerated well. pt is sleepy, Dr billings IS AWARE AND Dr BILLINGS ordered to resume diet, noted and carried out. will continue to monitor.
[2019-08-10 12:00] VITALS: BP 128/81
--- NOTE | 2019-08-10 13:12 | NUR ---
NM Myocardial Perfusion scan complete.
--- NOTE | 2019-08-10 14:29 | Diagnostic Imaging Report ---
Indications: Chest pain Technique: Single day single isotope protocol utilized. Initially, resting images obtained using IV administration 10.5 millicuries 99M technetium Myoview. Subsequently, patient underwent lexiscan stress testing. See cardiology report for details. During Rita infusion, IV administration 32 mCi 99 M technetium Myoview. SPECT and planar images obtained. SPECT images gated to 8 phases of the cardiac cycle were also obtained, and reformatted into cine images for evaluation of ejection fraction. There is reformats done with and without motion correction patient moved during the exam Comparison: none Findings: Per cardiology report, patient experienced chest tightness during infusion. Per cardiology report, resting EKG demonstrates sinus bradycardia with diffuse T-wave inversion. No ST changes during infusion demonstrated. Imaging demonstrates reversible decreased perfusion in the apex extending into the anterior wall. Calculated post stress ejection fraction 47% on images post processed using motion correction, and 61% 6 when done without motion correction. There is evidence of apical and inferior wall hypokinesis on both sets. Impression: Nonischemic clinical response to pharmacologic stress, per cardiology report Nondiagnostic electrocardiographic response to pharmacologic stress, per cardiology report Evidence of apical ischemia extending slightly into the anterior wall Calculated post stress ejection fraction 47-61% (favor the higher value)
--- NOTE | 2019-08-10 14:56 | General Progress Note ---
Assessment/Plan Problem List: (1) Pancreatitis ICD Codes: K85.9 - Acute pancreatitis, unspecified SNOMED: 27470758 (2) Cholecystitis ICD Codes: K81.9 - Cholecystitis, unspecified SNOMED: 58289472, 16953094 (3) Epigastric pain ICD Codes: R10.13 - Epigastric pain SNOMED: 63700878 (4) Abdominal pain ICD Codes: R10.9 - Unspecified abdominal pain SNOMED: 78249894 Qualifiers: Qualified Codes: R10.13 - Epigastric pain (5) Chest pain ICD Codes: R07.9 - Chest pain, unspecified SNOMED: 71553788 Qualifiers: Qualified Codes: R07.9 - Chest pain, unspecified (6) Gallstones ICD Codes: K80.20 - Calculus of gallbladder without cholecystitis without obstruction SNOMED: 268445860 Status: progressing Assessment/Plan: afebrile pancreatitis r/o retained stone abdominal pain is improving reviewed chart and labs Subjective ROS Limited/Unobtainable: Yes HEENT: Reports: no symptoms Cardiovascular: Reports: no symptoms Respiratory: Reports: no symptoms Allergies: Coded Allergies: No Known Allergies (Unverified , 09/16/15) Objective Last 24 Hour Vital Signs Date Time Temp Pulse Resp B/P (MAP) Pulse Ox O2 Delivery O2 Flow Rate FiO2 08/10/19 12:00 98.1 65 19 128/81 (97) 95 08/10/19 11:43 68 08/10/19 09:32 135/81 08/10/19 08:29 Room Air 08/10/19 08:24 65 08/10/19 08:00 98.6 65 20 135/81 (99) 98 08/10/19 04:00 97.5 56 18 127/86 (100) 97 08/10/19 03:22 54 08/10/19 00:00 96.8 59 18 114/64 (81) 92 08/10/19 00:00 59 08/09/19 21:00 Room Air 08/09/19 20:00 71 08/09/19 20:00 97.3 65 18 113/57 (75) 98 08/09/19 16:00 97.9 60 16 129/85 (100) 96 08/09/19 16:00 58 08/09/19 16:00 98.2 80 16 148/87 (107) 100 Intake and Output 08/09/19 08/10/19 19:00 07:00 Intake Total 55 ml 460 ml Balance 55 ml 460 ml Intake Oral 240 ml IV Total 55 ml 220 ml # Voids 2 Laboratory Tests 08/10/19 06:17: White Blood Count 7.4, Red Blood Count 5.32, Hemoglobin 15.9, Hematocrit 46.6, Mean Corpuscular Volume 88, Mean Corpuscular Hemoglobin 29.9, Mean Corpuscular Hemoglobin Concent 34.0, Red Cell Distribution Width 11.7, Platelet Count 214, Mean Platelet Volume 6.4L, Neutrophils (%) (Auto) 62.2, Lymphocytes (%) (Auto) 24.2, Monocytes (%) (Auto) 10.4H, Eosinophils (%) (Auto) 2.2, Basophils (%) ( Auto) 1.1, Sodium Level 140, Potassium Level 4.1, Chloride Level 104, Carbon Dioxide Level 28, Anion Gap 8, Blood Urea Nitrogen 15, Creatinine 1.2, Estimat Glomerular Filtration Rate > 60, Glucose Level 106, Calcium Level 9.1, Triglycerides Level 138, Cholesterol Level 137, LDL Cholesterol 81, HDL Cholesterol 29L, Cholesterol/HDL Ratio 4.7H Height (Feet): 5 Height (Inches): 7.00 Weight (Pounds): 210 Neck: supple Cardiovascular: normal rate Respiratory/Chest: lungs clear Peter Barragan MD Aug 10, 2019 14:56
--- NOTE | 2019-08-10 15:47 | NUR ---
CASE MANAGEMENT:REVIEW 54 YR OLD MALE WALKED IN TO ER...FROM HOME CC: CHEST/ABDOMINAL PAIN SI: ABDOMINAL/CHEST PAIN 97.3 65 10 151/99 98% ON RA TROPONIN(-) IS: 1L NS BOLUS CHEST XRAY CT ABDOMEN : TO TELEMETRY IS: COZAAR PO QD PROTONIX PO QD
[2019-08-10 16:00] VITALS: BP 123/75
--- NOTE | 2019-08-10 18:58 | NUR ---
NURSE NOTES: Dr ORTA called and he is aware about stress test result and cleared pt to discharge, Dr PHILLIPS notified and ordered to D/C pt to home with home meds, noted and carried out. all D/C assessments and instructions done and pt verbally confirmed to understand all. pt is stable, V/S stable. all belongings are with pt and pt signed belongings list. waiting for to pick pt up. will continue to monitor.
--- NOTE | 2019-08-10 19:18 | NUR ---
NURSE NOTES: Received pt and report from DOUG Mckeon. Observed pt resting in bed with both eyes open. Pt is A/Ox4. Pt is being discharge home; awaiting for to arrive. Discharge paperwork and education given by DOUG Mckeon. Bed is in the lowest position and locked. Call light and bedside table within reach. No signs/symptoms of acute distress noted at this time. Will continue plan of care until pt is discharge. Addendum: 08/10/19 at 2007 by Nisa Mesa Mai, RN Report given by DOUG Mckeon and DOUG Fuller.
--- NOTE | 2019-08-10 19:41 | NUR ---
HAND-OFF: Report given to MY RN. Pt is awake and stable.
[2019-08-10] MEDS ORDERED: Tubing IV Secondary IV ONE (19:49)
[2019-08-10] MEDS ORDERED: NS 275ml ONE (19:49)
--- NOTE | 2019-08-10 19:50 | NUR ---
NURSE NOTES: Pt discharge home with . lunchroom monitor and IV removed; no bleeding noted. Pt ambulate to car without any incident. Belongings left with pt. Pt's vital signs stable. No signs/symptoms of acute distress noted.
--- NOTE | 2019-08-13 11:55 | NUR ---
CASE MANAGEMENT: CM review and clinical information (face sheet/H&P/ER MD report) faxed to [facility] @ [phone]. T#[id number]
--- NOTE | 2019-08-14 13:03 | Discharge Summary ---
Discharge Summary Discharge Summary _ Discharge summary DATE OF ADMISSION: 08/09/2019 DATE OF DISCHARGE: [] 08/10/2019 cardiac DISCHARGED BY: Dr Barragan REASON FOR ADMISSION: [] 64 years old male with past medical history of gallbladder removal, history of retained stone, presented with epigastric and right upper quadrant pain radiating to right shoulder. Pain reported as being severe and being moderate constant. No dyspnea on exertion no chest pain. No association with food. Upon evaluation vital signs were stable. Laboratory work-up revealed no leukocytosis stable hemoglobin hematocrit. Stable electrolytes and renal parameters. Stable LFT and lipase. Troponin negative. A CT of the abdomen and pelvis revealed no evidence of bowel obstruction. No focal pericecal inflammatory changes to suggest acute appendicitis. Status post cholecystectomy. She will MDT sign. Hepatomegaly with prostatic heterogenicity. Likely on the basis of BPH. Equivocal thickening of the wall of the gastric antrum versus underdistention. Apparent focal wall thickening involving portion of the rectum which may be related to underdistention. Chest x-ray revealed bibasilar atelectasis no acute cardiopulmonary pathology otherwise. Abdominal ultrasound demonstrated hepatic steatosis. Splenomegaly. Status post cholecystectomy. Patient subsequently admitted to telemetry floor for further management. CONSULTANTS: manufacturing group leader Dr. Oglesby neurologist pulmonary ID specialist GI specialist Dr. Foster Pain specialist Dr. Grigsby administrator pesticide divisional human resources director/oncologist surgery psychiatrist HOSPITAL COURSE: [] Patient admitted to telemetry floor. Rehabilitation Services Manager and GI specialist consulted. Patient undergone nuclear stress test as per cardiology recommendation which revealed evidence of apical ischemia extending slightly into the anterior wall. Calculated poststress ejection fraction 47 to 61%. Lipid panel was stable. Serial troponins were negative. Telemetry was negative and showed sinus rhythm with 2 high sinus bradycardia. Patient had no chest pain pulse oximetry was stable on room air. Patient will need outpatient follow-up with cardiology as per insurance to schedule cardiac cath. Due to findings on the nuclear stress test. Patient was on antiplatelet therapy with aspirin. Blood pressure was managed with angiotensin receptor mao. DVT prophylaxis provided GI prophylaxis provided. GI specialist followed. Given CT finding patient will need EGD and colonoscopy if stress test negative however at this time patient will need to take prior care of the cardiac issue for patient clinic pain management was addressed as per pain specialist. Patient clinically stabilized and was ready for discharge FINAL DIAGNOSES: 1. [] DISCHARGE MEDICATIONS: See Medication Reconciliation list. DISCHARGE INSTRUCTIONS: [] Patient was discharged home I have been assigned to dictate discharge summary for this account. I was not involved in the patient's management. Janette Amezcua NP Aug 14, 2019 13:03
--- NOTE | 2019-08-14 19:30 | Consultation ---
DATE OF CONSULTATION: 08/10/2019 CARDIOLOGY CONSULTATION CONSULTING PHYSICIAN: Everette Simon M.D. REFERRING PHYSICIAN: Peter Barragan M.D. REASON FOR CONSULTATION: Management of chest pain. HISTORY OF PRESENT ILLNESS: The patient is a very unfortunate 54-year-old gentleman status post cholecystectomy, who presents to the hospital with epigastric pain as well as right upper quadrant pain that radiates to the right shoulder since the morning of 08/09/2019. The patient did not have any chest pain or shortness of breath at the time of arrival to this hospital. His coronary artery disease risk factors includes hypertension and hypercholesterolemia. At the time of arrival to this facility, blood pressure was 151/99 mmHg and heart rate was 65. A 12-lead electrocardiogram was significant for sinus rhythm, heart rate of 61 with flipped T-waves in aVL, aVF as well as V3 to V6 suggestive of possible ischemia. QT interval was measured at 465 milliseconds. Laboratory data at time of arrival to this hospital revealed normal troponin I level at 0.043 and 0.054 as well as 0.050. Cardiology consultation was made at request of Dr. Barragan for evaluation and management of chest pain. PAST MEDICAL HISTORY: 1. Hypertension. 2. Hypercholesterolemia. 3. Cholecystitis, status post cholecystectomy. PAST SURGICAL HISTORY: Status post recent cholecystectomy. ALLERGIES: No known drug allergies. FAMILY HISTORY: No premature coronary artery disease in first-degree relatives. REVIEW OF SYSTEMS: A 12-system review done essentially negative except what was mentioned in history of present illness. PHYSICAL EXAMINATION: VITAL SIGNS: Blood pressure was 151/99, pulse 65, respirations 10, and temperature 97.9 degrees Fahrenheit. O2 saturation 98% on room air. GENERAL: The patient is a very unfortunate 54-year-old gentleman in no apparent respiratory distress. Alert and oriented x4. HEENT: Atraumatic and normocephalic. Anicteric. Pupils are equal, round, and reactive to light and accommodation. Extraocular muscles intact. NECK: JVP less than 5 cm. No carotid bruits. Carotid upstrokes 2+ bilaterally. CARDIOVASCULAR: Normal S1, S2. Regular rate and rhythm. No murmurs, gallops, or rubs. PMI is at fourth intercostal space in the midclavicular line. LUNGS: Clear to auscultation bilaterally. ABDOMEN: Tenderness in the right upper quadrant as well as mid epigastric. No guarding. Soft. Positive bowel sounds. EXTREMITIES: No evidence of edema, clubbing, or cyanosis. LABORATORY FINDINGS: WBC was 7.7, hemoglobin 15.1, hematocrit 42.7, and platelet count 215,000. Troponin I x3 negative. Sodium was 141, potassium 3.8, chloride 106, bicarbonate 29, BUN 17, and creatinine 1.2. Glucose 98. Calcium is 9.0. INR is 1.1. Chest x-ray showed no acute cardiopulmonary disease with low volumes with streaky atelectasis at the bases. ASSESSMENT AND PLAN: The patient is a very unfortunate 54-year-old gentleman, who is seen in Cardiology consultation. 1. Noncardiac chest pain. The patient's main reason for this hospitalization was abdominal pain. Acute myocardial infarction is ruled out. There are some nonspecific T-wave inversions in the 12-lead electrocardiogram, which according to the patient has been chronic and not new. The patient underwent myocardial perfusion stress imaging study, which showed small area of ischemia in the apical region. The patient does not require any further cardiac workup. He would be continued on primary CAD preventive measures given the fact that he is asymptomatic. The patient requires a tight blood pressure control blood pressure of 120/80, LDL less than 100 mg/dL. The mainstay of therapy for very small areas of ischemia is medical therapy. I would consider metoprolol in addition to losartan for management of hypertension. 2. History of hyperlipidemia. We would to obtain fasting lipid panel in the outpatient setting. 3. Status post cholecystectomy. I would like to thank Dr. Barragan for the courtesy of this consultation. Everette Simon M.D. DR: YYEO JOB#: [id number] CC:
== END 2019-08-10 19:50 | disposition home or self-care (01) | DRG 444 ==
LOC: EMR 22:14 → 2E 08-09 02:02 → EDBEDREQ 08-09 02:13
DX: K91.5 Postcholecystectomy syndrome (principal); K85.90 Acute pancreatitis without necrosis or infection, unspecified; K91.86 Retained cholelithiasis following cholecystectomy; I10 Essential (primary) hypertension; E78.00 Pure hypercholesterolemia, unspecified; G47.30 Sleep apnea, unspecified; R07.9 Chest pain, unspecified; K76.0 Fatty (change of) liver, not elsewhere classified; R16.1 Splenomegaly, not elsewhere classified; N28.1 Cyst of kidney, acquired; K81.9 Cholecystitis, unspecified; Y83.8 Other surgical procedures as the cause of abnormal reaction of the patient, or of later complication, without mention of misadventure at the time of the procedure
CPT/HCPCS: 36415; 71045; 74177; 76700; 78452; 80048; 80053; 80061; 81003; 83690; 84484; 85025; 85610; 85730; 93005; 93017; 96360; 96372; 99285; J2785; J7030

== ENCOUNTER 2020-06-30 16:04 | Emergency (ER) | payer OTHER ==
[~2020-06-30] VITALS: Ht 170.2 cm; Wt 90.7 kg
[~2020-06-30 16:04] MED LIST changes: +LOSARTAN-HCTZ1 EACH ORAL
--- NOTE | 2020-06-30 16:32 | Emergency Room Report ---
History of Present Illness General Chief Complaint: Chest Pain Source: Patient Present Illness HPI Patient is a 55-year-old male presents for increased chest pressure. Reports having intermittent episodes over the past 1 week which had been more frequent in nature. Reports having constant chest pressure approximately 3 for the past 3 hours. Pain is exertional in nature. Had previous history of hypertension as well as high cholesterol: Controlled with statins. Denies any recent fever or cough. Had not been vomiting. Reports having onset during walking upstairs. Pain had somewhat improved after rest but continued to have some persistent chest tightness. Denies any leg pain or swelling. Allergies: Coded Allergies: No Known Allergies (Unverified , 09/16/15) COVID-19 Screening Contact w/high risk pt: No Experienced COVID-19 symptoms?: No COVID-19 Testing performed SWITCHBOARD TROUBLESHOOTER: No Patient History Past Medical History: see triage record Reviewed Nursing Documentation: PMH: Agreed; PSxH: Agreed Nursing Documentation-PMH Hx Cardiac Problems: Yes Hx Hypertension: Yes Hx Diabetes: No Hx Cancer: No Hx Gastrointestinal Problems: Yes - Abdominal pain Hx Neurological Problems: Yes - sleep apnea Review of Systems All Other Systems: negative except mentioned in HPI Physical Exam Vital Signs Date Time Temp Pulse Resp B/P (MAP) Pulse Ox O2 Delivery O2 Flow Rate FiO2 06/30/20 16:07 97.2 81 18 135/64 (87) 94 Room Air Sp02 EP Interpretation: reviewed, normal General Appearance: normal inspection, well appearing, no apparent distress, alert, GCS 15 Head: atraumatic ENT: normal ENT inspection, hearing grossly normal, normal voice Neck: normal inspection, full range of motion, supple, no bony tend Respiratory: normal inspection, lungs clear, normal breath sounds, no respiratory distress, no retraction, no wheezing Cardiovascular #1: regular rate, rhythm, no edema Gastrointestinal: normal inspection, normal bowel sounds, non tender, soft, no guarding, no hernia Genitourinary: no CVA tenderness Musculoskeletal: normal inspection, back normal, normal range of motion Neurologic: alert, motor strength/tone normal, uniform force captain III-XII nml as tested, oriented x3, responsive, speech normal, normal inspection Psychiatric: normal inspection, judgement/insight normal, mood/affect normal Medical Decision Making Diagnostic Impression: Primary Impression: Chest pain Additional Impression: Non-STEMI (non-ST elevated myocardial infarction) ER Course Patient presented for chest pain. Differential diagnosis include was not limited to myocardial infarction, unstable angina, pancreatitis, reflux, among others. Because of complexity of patient's case laboratory tests and imaging studies were ordered. EKG interpreted by me showed normal sinus rhythm with a rate of 72 with diffuse T wave inversion with biphasic T waves in lead V3. There are no acute ST changes noted. Patient was given aspirin as well as Lovenox.Patient was noted to have prior imaging studies for his heart which showed some apical ischemia nuclear scan. Chest x-ray 1 view interpreted by me showed normal cardiac size without evident infiltrate poor inspiration.Patient was given aspirin as well as nitroglycerin. He refused for his nitroglycerin and states that his chest pain is currently mild. Patient's EKG did show some concerning T wave inversion consistent with possible apical ischemia. Patient's initial troponin was noted to be positive. Given the patient's ongoing chest pain patient be transferred for higher level of care.Patient was discussed with interventional cardiology from [facility] who agreed to accept the patient as transfer for higher level of care. Labs Test 06/30/20 16:30 White Blood Count 7.4 K/UL (4.8-10.8) Red Blood Count 5.24 M/UL (4.70-6.10) Hemoglobin 15.9 G/DL (14.2-18.0) Hematocrit 49.0 % (42.0-52.0) Mean Corpuscular Volume 93 FL (80-99) Mean Corpuscular Hemoglobin 30.4 PG (27.0-31.0) Mean Corpuscular Hemoglobin Concent 32.5 G/DL (32.0-36.0) Red Cell Distribution Width 12.6 % (11.6-14.8) Platelet Count 190 K/UL (150-450) Mean Platelet Volume 7.9 FL (6.5-10.1) Neutrophils (%) (Auto) 62.2 % (45.0-75.0) Lymphocytes (%) (Auto) 26.0 % (20.0-45.0) Monocytes (%) (Auto) 8.5 % (1.0-10.0) Eosinophils (%) (Auto) 2.1 % (0.0-3.0) Basophils (%) (Auto) 1.2 % (0.0-2.0) D-Dimer 0.31 mg/L FEU (0.00-0.49) Sodium Level 141 MMOL/L (136-145) Potassium Level 4.1 MMOL/L (3.5-5.1) Chloride Level 105 MMOL/L (98-107) Carbon Dioxide Level 30 MMOL/L (21-32) Anion Gap 6 mmol/L (5-15) Blood Urea Nitrogen 16 mg/dL (7-18) Creatinine 1.3 MG/DL (0.55-1.30) Estimat Glomerular Filtration Rate 56.9 mL/min (>60) Glucose Level 99 MG/DL (74-106) Calcium Level 8.9 MG/DL (8.5-10.1) Troponin I 1.490 ng/mL (0.000-0.056) EKG Diagnostic Results Rate: normal Rhythm: NSR ST Segments: other - Diffuse T wave inversion with biphasic T wave in lead V III Last Vital Signs Date Time Temp Pulse Resp B/P (MAP) Pulse Ox O2 Delivery O2 Flow Rate FiO2 06/30/20 16:07 97.2 81 18 135/64 (87) 94 Room Air Status: improved Disposition: SHORT-TERM HOSP Condition: Stable Kirt Spear MD Jun 30, 2020 16:32
[2020-06-30] MEDS ORDERED: NITRO0.4 SL (16:38)
[2020-06-30] MEDS ORDERED: ATORVASTATIN CA20 MG ORAL (16:38)
[2020-06-30] MEDS: Nitroglycerin Subl 0.4mg tab SL PRN ×2 (16:42→17:23)
[2020-06-30] MEDS ORDERED: Aspirin Baby 81mg ORAL ONE (16:45)
[2020-06-30] MEDS ORDERED: Enoxaparin 80mg Inj SUBQ ONE (16:45)
[2020-06-30 17:02] VITALS: BP 147/67
[2020-06-30 17:02] LABS: BASOPHILS % (AUTO) 1.2 % (0.0-2.0); EOSINOPHILS % (AUTO) 2.1 % (0.0-3.0); HEMOGLOBIN 15.9 G/DL (14.2-18.0); MEAN CORPUSCULAR VOLUME 93 FL (80-99); MONOCYTES % (AUTO) 8.5 % (1.0-10.0); NEUTROPHILS % (AUTO) 62.2 % (45.0-75.0); PLATELET COUNT 190 K/UL (150-450); RED BLOOD COUNT 5.24 M/UL (4.70-6.10); RED CELL DISTRIBUTION WIDTH 12.6 % (11.6-14.8); WHITE BLOOD COUNT 7.4 K/UL (4.8-10.8)
[2020-06-30 17:07] LABS: CALCIUM 8.9 MG/DL (8.5-10.1); CREATININE 1.3 MG/DL (0.55-1.30); POTASSIUM 4.1 MMOL/L (3.5-5.1)
[2020-06-30 17:16] LABS: ALBUMIN 4.3 G/DL (3.4-5.0); ALBUMIN/GLOBULIN RATIO 1.1 (1.0-2.7); BILIRUBIN,TOTAL 0.5 MG/DL (0.2-1.0)
[2020-06-30 17:17] VITALS: BP 116/72
[2020-06-30 17:33] VITALS: BP 100/59
--- NOTE | 2020-06-30 17:53 | Diagnostic Imaging Report ---
EXAM: XR Chest, 1 View CLINICAL HISTORY: Chest pain. TECHNIQUE: Frontal view of the chest. COMPARISON: 08/09/2019. FINDINGS: Lungs: Minimal subsegmental atelectasis at the left lung base. Pleural space: Unremarkable. No pneumothorax. Heart: Unremarkable. No cardiomegaly. Mediastinum: Unremarkable. Bones/joints: Osteopenia. Ribs are grossly unremarkable. Gentle dextro scoliosis of the thoracic spine. Soft tissues: Soft tissues are unremarkable. Other findings: There is hypoaeration. IMPRESSION: 1. Hypoaeration. 2. Minimal subsegmental atelectases left lung base. 3. Osteopenia.
[2020-06-30 18:27] VITALS: BP 100/59
--- NOTE | 2020-07-02 19:21 | Cardiology Report ---
APPROVED REPORT EKG Measurement Heart [id number] NM [id number] <Conclusion> Normal sinus rhythm ST & Marked T wave abnormality, consider anterolateral ischemia Abnormal ECG
== END 2020-06-30 18:16 | disposition short-term general hospital (02) ==
LOC: EMR 16:20
DX: I21.4 Non-ST elevation (NSTEMI) myocardial infarction (principal); I10 Essential (primary) hypertension; G47.30 Sleep apnea, unspecified; Z20.828 Contact with and (suspected) exposure to other viral communicable diseases
CPT/HCPCS: 36415; 71045; 80053; 83690; 83880; 84484; 85025; 85379; 93005; 96372; 99285; J1650; U0002